=== PATIENT | male | born 1950 | race Two or more races ===

== ENCOUNTER 2017-11-04 11:54 | Emergency (ER) | payer SELFPAY ==
[~2017-11-04] VITALS: Ht 185.4 cm; Wt 102.1 kg
[2017-11-04 12:00] VITALS: BP 138/84
[2017-11-04] MEDS: HYDROCODONE/APAP 5/325MG 1 EACH TABLET PO ONE (12:46)
== END 2017-11-04 12:49 | disposition home or self-care (01) ==
LOC: ER 11:56
DX: B02.29 Other postherpetic nervous system involvement (principal); M54.31 Sciatica, right side; N40.0 Benign prostatic hyperplasia without lower urinary tract symptoms
CPT/HCPCS: A4606; Z7610